=== PATIENT | female | born 1985 | race Two or more races ===

== ENCOUNTER 2018-11-30 16:50 | Inpatient (IN) | payer MEDICAID, OTHER ==
[~2018-11-30] VITALS: Ht 162.6 cm; Wt 95.3 kg
[2018-11-30] MEDS: LACTATED RINGER'S 1,000 ML IV SCH (18:20)
[2018-11-30] MEDS: MAGNESIUM SULFATE 40MG/ML 1,000 ML IV SCH (18:21)
[2018-11-30] MEDS ORDERED: MAGNESIUM SULFATE 100 ML IV ONE ×2 (18:28→18:30)
[2018-11-30] MEDS ORDERED: PREN-96 PO (18:28)
[2018-11-30] MEDS ORDERED: hydrALAZINE HCL 20 MG/ML VL ONE (18:28)
[2018-11-30] MEDS ORDERED: MAGNESIUM SULFATE 40MG/ML 1,000 ML IV ONE (18:28)
[2018-11-30] MEDS ORDERED: hydrALAZINE HCL 20 MG/ML VL IV ONE (18:30)
[2018-11-30 19:12] LABS: Basophils # (auto) 0 uL; Basophils % (auto) 0.3 % (0.0-2.0); Eosinophils # (auto) 0 uL; Eosinophils % (auto) 0.4 % (0.0-7.0); Hematocrit 32.2 % (36.0-46.0); Lymphocytes # (auto) 1.7 uL; Lymphocytes % (auto) 24.3 % (10.0-50.0); Mean Corpuscular Hemoglobin 29.8 pg (28.0-32.0); Mean Corpuscular Volume 87.5 fL (80.0-100.0); Monocytes # (auto) 0.5 uL; Monocytes % (auto) 6.4 % (0.0-12.0); Neutrophils # (auto) 4.9 uL; Neutrophils % (auto) 68.6 % (37.0-80.0); Nucleated Red Blood Cells % 0.2 %; Platelet Count (auto) 302 10^3/uL (140-450); Red Blood Cells 3.68 10^6/uL (4.0-5.20); Red Cell Distribution Width 13.9 % (11.8-14.3); White Blood Cell 7.1 10^3/uL (4.4-10.8)
[2018-11-30 19:26] LABS: Urine Bacteria NONE SEEN /hpf (None Seen); Urine Blood Negative /uL (Negative); Urine Specific Gravity 1.012 (1.001-1.035); Urine WBC 1 /hpf (0 - 5)
[2018-11-30 19:27] LABS: Albumin 2.6 g/dL (3.4-5.0); Calcium 8.5 mg/dL (8.5-10.1)
[2018-11-30 19:30] LABS: BUN/Creatinine Ratio 6.9; Bilirubin, Total 0.7 mg/dL (0.2-1.0); INR < 0.93 (0.9-1.15); Partial Thromboplastin Time 24.8 sec (23.64-32.05); Total Protein 6.8 g/dL (6.4-8.2); Uric Acid 4.6 mg/dL (2.6-6.0)
[2018-11-30 19:37] LABS: Potassium 2.9 mmol/L (3.5-5.1)
[2018-11-30 20:15] LABS: Fibrinogen 463 mg/dL (177-375)
[2018-11-30] MEDS ORDERED: POTASSIUM CHL 20MEQ/100ML 100 ML IV ONE (20:15)
[2018-11-30] MEDS: hydrALAZINE HCL 20 MG/ML VL IV PRN (20:47)
[2018-11-30] MEDS ORDERED: POTASSIUM CHL 20 Meq TABLET PO ONE (22:15)
[2018-11-30] MEDS ORDERED: fentaNYL W ROPIVACAINE 150 ML EPI SCH (22:45)
[2018-11-30] MEDS ORDERED: NALOXONE HCL 0.4 MG/ML VIAL IV ONE (22:45)
[2018-11-30] MEDS ORDERED: ePHEDrine SULFATE 50 MG/ML AMP IV ONE (22:45)
[2018-11-30] MEDS ORDERED: LIDOCAINE HCL 2 %PF INJ 10ML AMP IJ ONE (22:45)
[2018-11-30] MEDS ORDERED: fentaNYL CITRATE 100 MCG/2 ML VL IV ONE (22:45)
[2018-12-01] MEDS ORDERED: POTASSIUM CHL 20MEQ/100ML 100 ML IV ONE
[2018-12-01] MEDS: hydrALAZINE HCL 20 MG/ML VL IV PRN (01:24)
[2018-12-01] MEDS ORDERED: ACETAMINOPHEN 325 MG TAB PO PRN (01:45)
[2018-12-01] MEDS ORDERED: ONDANSETRON HCL 4 MG/2 ML VIAL ONE (02:05)
[2018-12-01] MEDS ORDERED: ONDANSETRON HCL 4 MG/2 ML VIAL IV ONE (02:15)
[2018-12-01] MEDS ORDERED: ACETAMINOPHEN 650 MG RECT SUPP PR ONE (02:15)
[2018-12-01] MEDS ORDERED: LACT. RINGERS/OXYTOCIN 20UNITS 1,000 ML IV SCH (05:50)
[2018-12-01] MEDS ORDERED: WITCH HAZEL-GLYCERIN PAD TOP PRN (06:00)
[2018-12-01] MEDS ORDERED: PHISODERM TOP SOLN 240ML BTL TOP PRN (06:00)
[2018-12-01] MEDS ORDERED: METHYLERGONOVINE MALEATE 0.2 MG/ML AMP IM PRN (06:00)
[2018-12-01] MEDS ORDERED: LIDOCAINE 1% (LOCAL ANESTH.) PF 5ml SDV IJ ONE (06:00)
[2018-12-01] MEDS ORDERED: DERMOPLAST 60ML BOTTLE TOP PRN (06:00)
[2018-12-01] MEDS: LACTATED RINGER'S 1,000 ML IV SCH ×2 (07:06→07:08)
[2018-12-01 07:46] LABS: Albumin 2.5 g/dL (3.4-5.0); Calcium 7.7 mg/dL (8.5-10.1)
[2018-12-01 07:51] LABS: Bilirubin, Total 0.8 mg/dL (0.2-1.0); Total Protein 6.4 g/dL (6.4-8.2)
[2018-12-01 08:17] LABS: Basophils # (auto) 0 uL; Basophils % (auto) 0.1 % (0.0-2.0); Eosinophils # (auto) 0 uL; Hematocrit 32.8 % (36.0-46.0); Hemoglobin 10.8 g/dL (12.2-16.2); Lymphocytes # (auto) 1.3 uL; Lymphocytes % (auto) 12.2 % (10.0-50.0); Mean Corpuscular Hemoglobin 29.3 pg (28.0-32.0); Mean Corpuscular Volume 88.8 fL (80.0-100.0); Monocytes # (auto) 0.4 uL; Monocytes % (auto) 3.3 % (0.0-12.0); Neutrophils # (auto) 9.3 uL; Neutrophils % (auto) 84.4 % (37.0-80.0); Nucleated Red Blood Cells % 0.2 %; Platelet Count (auto) 292 10^3/uL (140-450); White Blood Cell 11.1 10^3/uL (4.4-10.8)
[2018-12-01 08:30] LABS: INR < 0.93 (0.9-1.15); Partial Thromboplastin Time 24.5 sec (23.64-32.05)
[2018-12-01] MEDS: MAGNESIUM SULFATE 40MG/ML 1,000 ML IV SCH (08:30)
--- NOTE | 2018-12-01 08:30 | NUR ---
magnesium started at 1gm: 25 ml/hr per md orders
[2018-12-01] MEDS: ACETAMINOPHEN 325 MG TAB PO PRN ×2 (09:30→15:50)
[2018-12-01] MEDS ORDERED: POTASSIUM CHL 20 Meq TABLET PO ONE (10:00)
--- NOTE | 2018-12-01 10:56 | NUR ---
Ambulation: Patient OOB with standby assistance by RN. Patient ambulated to chair with steady gait. Patient cath in place. Pericare teaching provided with returned demonstration by patient. Clean gown provided and bed linen changed. Patient ambulated back to bed with steady gait pt felt dizzy at assisted back into bed
[2018-12-01] MEDS ORDERED: AMMONIA 0.33 ML INHALANT IN ONE (11:12)
--- NOTE | 2018-12-01 11:27 | NUR ---
PROVIDER SBAR GIVEN TO DR RENEE, ORDERS RECEIVED TO D/C MAG, STAT CBC, AND NS AT 125ML/HR, PT TO KEEP ALCARAZ CATH AND REMAIN ON BED REST AT THIS TIME. CONTINUE CARE.
[2018-12-01 11:34] VITALS: BP_SYST 136; BP_SYST 97; BP_DIAS 55; BP_DIAS 62
[2018-12-01] MEDS: SODIUM CHLORIDE 0.9% 1,000 ML IV SCH ×2 (11:34→19:24)
--- NOTE | 2018-12-01 11:34 | NUR ---
magnesium stopped per md orders
[2018-12-01] MEDS ORDERED: SODIUM CHLORIDE 0.9% 1,000 ML IV ONE (11:45)
--- NOTE | 2018-12-01 11:58 | NUR ---
lab at bedside
[2018-12-01 12:24] LABS: Basophils # (auto) 0 uL; Basophils % (auto) 0.1 % (0.0-2.0); Eosinophils # (auto) 0 uL; Hemoglobin 8.3 g/dL (12.2-16.2); Lymphocytes # (auto) 1.3 uL; Monocytes # (auto) 0.7 uL
[2018-12-01 12:26] LABS: Lymphocytes % (auto) 9.2 % (10.0-50.0); Mean Corpuscular Hemoglobin 29.4 pg (28.0-32.0); Mean Corpuscular Hgb Conc. 33.2 g/dL (32.0-36.0); Mean Corpuscular Volume 88.5 fL (80.0-100.0); Monocytes % (auto) 4.7 % (0.0-12.0); Neutrophils # (auto) 12.1 uL; Nucleated Red Blood Cells % 0.2 %; Platelet Count (auto) 259 10^3/uL (140-450); Red Blood Cells 2.82 10^6/uL (4.0-5.20); Red Cell Distribution Width 13.7 % (11.8-14.3); White Blood Cell 14.1 10^3/uL (4.4-10.8)
--- NOTE | 2018-12-01 13:10 | NUR ---
provider dr prakash updated on labs, recent vitals, and pt status, continue care
[2018-12-01 14:41] VITALS: BP 131/78
--- NOTE | 2018-12-01 15:56 | NUR ---
provider dr prakash notified of pt passing 2 golf ball sized blood clots, uterus firm 1 above umbilicus, orders received for cytotec 200mg sublingual and 600mg rectal.
--- NOTE | 2018-12-01 16:17 | NUR ---
provider dr prakash notified of pt having back pain feeling like "contractions" and pain unrelieved by tylenol, orders received for tylenol #3 2 tablets Q4 hrs prn, CBC in the morning. MD will be in to see pt.
--- NOTE | 2018-12-01 16:26 | NUR ---
provider notified of pt crying due to back pain, md to be in to see pt
--- NOTE | 2018-12-01 16:50 | NUR ---
provider dr prakash at bedside, notified of peripads and lower back pain, vaginal exam done by MD, manual removal of multiple sized blood clots by MD. RN and charge at bedside, orders received for ultrasound tomorrow to rule out retained POC.
--- NOTE | 2018-12-01 16:58 | NUR ---
activity pt resting comfortably, denies pain at this time, bed linen and yolanda pad changed. continue care.
[2018-12-01 19:30] VITALS: BP 129/72
[2018-12-01] MEDS: ACETAMINOPHEN/CODEINE#3 (300/30mg) TAB PO PRN (19:35)
[2018-12-01] MEDS: ceFAZolin 1GM/50ML 50 ML IV SCH (21:27)
[2018-12-01 22:51] VITALS: BP 128/62
--- NOTE | 2018-12-01 22:53 | NUR ---
temperature pt covered in multiple blankets, 2 layers of blankets removed, one layer remains, room cooled down for patient. sig other at bedside, no distress noted, continue care.
[2018-12-02] VITALS (13 sets, daily range): BP systolic 116–136; BP diastolic 59–79
[2018-12-02] MEDS: SODIUM CHLORIDE 0.9% 1,000 ML IV SCH ×2 (01:04→03:34)
--- NOTE | 2018-12-02 03:20 | NUR ---
REPORT PT REPORT RECEIVED FROM Tammy DUBOIS RN ON STABLE PATIENT, ASSUMING CARE. NO DISTRESS NOTED.
[2018-12-02 04:06] LABS: RPR Non Reactive (Non Reactive)
[2018-12-02] MEDS: ceFAZolin 1GM/50ML 50 ML IV SCH (05:39)
[2018-12-02 06:06] LABS: Basophils # (auto) 0 uL; Eosinophils # (auto) 0 uL; Neutrophils # (auto) 9.1 uL; Nucleated Red Blood Cells % 0.1 %; Red Blood Cells 1.56 10^6/uL (4.0-5.20); Red Cell Distribution Width 13.9 % (11.8-14.3)
[2018-12-02 06:13] LABS: Basophils % (auto) 0.3 % (0.0-2.0); Eosinophils % (auto) 0.2 % (0.0-7.0); Lymphocytes # (auto) 2.2 uL; Lymphocytes % (auto) 18.5 % (10.0-50.0); Mean Corpuscular Hemoglobin 30.6 pg (28.0-32.0); Mean Corpuscular Hgb Conc. 34.2 g/dL (32.0-36.0); Mean Corpuscular Volume 89.5 fL (80.0-100.0); Monocytes # (auto) 0.7 uL; Monocytes % (auto) 5.8 % (0.0-12.0); Neutrophils % (auto) 75.2 % (37.0-80.0); Platelet Count (auto) 165 10^3/uL (140-450); White Blood Cell 12.1 10^3/uL (4.4-10.8)
[2018-12-02 06:17] LABS: Hemoglobin 4.8 g/dL (12.2-16.2)
--- NOTE | 2018-12-02 06:18 | NUR ---
CRITICAL HGB DR. RENEE NOTIFIED OF PTS CBC RESULTS, CRITICAL HGB OF 4.8, AND NO ORDER FOR POTASSIUM RE-DRAW. DR. RENEE NOTIFIED OF PTS TRENDING VITAL SIGNS, HOURLY URINE OUTPUTS. PT IS ALERT AND ORIENTED X4, PT DENIES ANY PAIN, HEADACHE, DIZZINESS, BLURRED VISION. PTS FUNDUS IS 1 BELOW UMBILICUS, FIRM, SCANT RUBRA BLEEDING. ORDERS RECEIVED FROM DR. RENEE FOR STAT CBC RE-DRAW, POTASSIUMS DRAW, D/C ALCARAZ. READ BACK AND VERIFIED ORDERS. WILL CARRY OUT.
--- NOTE | 2018-12-02 06:30 | NUR ---
Gonzalez catheter dc'd Order to discontinue gonzalez catheter. Gonzalez dc'd with clean technique following deflation of balloon, 400ml yellow urine remaining in gonzalez bag upon removal. Patient tolerated well with no complaints of pain. Continue care.
--- NOTE | 2018-12-02 06:34 | NUR ---
LAB AT BEDSIDE FOR REDRAW CBC AND POTASSIUM DRAW.
[2018-12-02 07:06] LABS: Basophils # (auto) 0 uL; Basophils % (auto) 0.1 % (0.0-2.0); Eosinophils # (auto) 0 uL; Eosinophils % (auto) 0.1 % (0.0-7.0); Hematocrit 14.4 % (36.0-46.0); Lymphocytes % (auto) 17.1 % (10.0-50.0); Mean Corpuscular Hemoglobin 30.3 pg (28.0-32.0); Mean Corpuscular Hgb Conc. 33.7 g/dL (32.0-36.0); Mean Corpuscular Volume 89.9 fL (80.0-100.0); Monocytes # (auto) 0.6 uL; Monocytes % (auto) 5.1 % (0.0-12.0); Neutrophils % (auto) 77.6 % (37.0-80.0); Platelet Count (auto) 173 10^3/uL (140-450); White Blood Cell 11.6 10^3/uL (4.4-10.8)
[2018-12-02 07:24] LABS: Hemoglobin 4.9 g/dL (12.2-16.2)
--- NOTE | 2018-12-02 07:25 | NUR ---
STAT HBG DR. RENEE NOTIFIED OF CBC RE-DRAW RESULTS, HGB OF 4.6, HCT, 14.5, POTASSIUM OF 3.0, CURRENT VITAL SIGNS GIVEN, PT IS ASYMPTOMATIC. ORDERS RECEIVED FROM DR. RENEE TO TRANSFUSE 2 UNITS OF PRBC'S NOW, 40MEQ PO POTASSIUM ONCE AND CBC RE-DRAW AFTER 2 UNIT OF BLOOD TRANSFUSED. READ BACK AND VERIFIED ORDERS WILL CARRY OUT.
[2018-12-02] MEDS ORDERED: POTASSIUM CHL 20 Meq TABLET PO ONE (07:45)
[2018-12-02] MEDS ORDERED: SODIUM CHLORIDE 0.9% 1,000 ML IV SCH (08:00)
--- NOTE | 2018-12-02 08:00 | NUR ---
IV insertion IV access obtained, via clean sterile technique by inserting 18 gauge catheter at right antecubital after 1 attempt(s). IV secured properly. No trauma to site. Patient tolerated procedure well.
--- NOTE | 2018-12-02 08:30 | NUR ---
BLOOD TRANSFUSION BLOOD TRANSFUSION STARTED, BASELINE VITALS OBTAINED, PT IS ASYMPTOMATIC. PT GIVEN EDUCATION ON REASON FOR BLOOD TRANSFUSION, RISKS AND BENEFITS EXPLAINED AND ALL QUESTIONS AND CONCERNS ADDRESSED AT THIS TIME. PT EDUCATED ON ALL SIDE EFFECTS AND SYMPTOMS TO REPORT TO RN. PT GIVEN "A PATIENT'S GUIDE TO BLOOD TRANSFUSION" INFORMATION. WILL CONTINUE TO MONITOR.
--- NOTE | 2018-12-02 08:54 | NUR ---
VOID #1 PT VOIDED 500ML PINK TINGED URINE ON BEDPAN WITHOUT DIFFICULTY. PT TOLERATED WELL. WILL CONTINUE TO MONITOR.
[2018-12-02] MEDS: ACETAMINOPHEN/CODEINE#3 (300/30mg) TAB PO PRN ×2 (09:51→18:32)
[2018-12-02] MEDS ORDERED: MEASLES, MUMPS & RUBELLA VAC(MMRII) 0.5ML SC ONE (10:00)
--- NOTE | 2018-12-02 10:30 | NUR ---
us at bedside
--- NOTE | 2018-12-02 10:54 | NUR ---
BLOOD TRANSFUSION 1ST UNIT PRBC'S COMPLETED. PT IS ASYMPTOMATIC. PT DENIES ANY S/S OF ANY TRANSFUSION REACTIONS. PREPARING TO HANG PRBC BAG #2. WILL CONTINUE TO MONITOR.
--- NOTE | 2018-12-02 11:00 | NUR ---
VOID #2 PT VOIDED 550ML PINK TINGED URINE ON BEDPAN WITHOUT DIFFICULTY. PT TOLERATED WELL. WILL CONTINUE TO MONITOR.
--- NOTE | 2018-12-02 11:30 | NUR ---
2ND UNIT PRBC'S STARTED, BASELINE VITALS TAKEN. PT DENIES ANY PAIN. WILL CONTINUE TO MONITOR.
--- NOTE | 2018-12-02 14:00 | NUR ---
US RESULT DR. RENEE NOTIFIED OF PTS US RESULTS, PT IS ASYMPTOMATIC, ALL TRENDING VITAL SIGNS GIVEN, PT RECEIVING 2ND UNIT OF PRBC'S. ORDERS RECEIVED FROM DR. RENEE TO CONTINUE WITH CURRENT PLAN OF CARE. WILL CONTINUE TO MONITOR.
--- NOTE | 2018-12-02 14:00 | NUR ---
ORDERS RECEIVED FROM DR. RENEE TO STOP ANCEF 1 GM IV ANTIBIOTIC AND PT CAN GET UP TO CHAIR AT BEDSIDE. READ BACK AND VERIFIED ORDERS. WILL CARRY OUT.
--- NOTE | 2018-12-02 14:05 | NUR ---
PT SITTING IN CHAIR AT BEDSIDE, PTS SPOUSE AT BEDSIDE. NO DISTRESS NOTED. WILL CONTINUE TO MONITOR.
--- NOTE | 2018-12-02 14:10 | NUR ---
LINEN CHANGE Clean gown provided and bed linen changed. Patient ambulated back to bed with steady gait and no distress noted.
--- NOTE | 2018-12-02 14:45 | NUR ---
PT ASSISTED BACK TO BED, PT TOLERATED WELL. NO DISTRESS NOTED. WILL CONTINUE TO MONITOR.
--- NOTE | 2018-12-02 14:48 | NUR ---
2ND UNIT PRBC'S TRANSFUSED. NO TRANSFUSION REACTIONS NOTED, VITAL SIGNS WITHIN PATIENTS NORMAL LIMITS, TOLERATING WELL. PT DENIES ANY PAIN. WILL CONTINUE TO MONITOR.
--- NOTE | 2018-12-02 14:50 | NUR ---
DR. RENEE NOTIFIED THAT PTS BLOOD TRANSFUSION IS COMPLETED, PT IS STABLE AND ASYMPTOMATIC, TRENDING VITAL SIGNS GIVEN. ORDERS RECEIVED FROM DR. RENEE TO SALINE LOCK IV, PT CAN AMBULATE TO BATHROOM, AND MEASURE ACCURATE OUTPUTS. READ BACK AND VERIFIED ORDERS. WILL CARRY OUT.
--- NOTE | 2018-12-02 14:53 | NUR ---
BATHROOM PT AMBULATED TO BATHROOM WITH STANDBY ASSIST. PT VOIDED 750ML YELLOW URINE WITHOUT DIFFICULTY. PT AMBULATED BACK TO BED VIA STEADY GAIT. NO DISTRESS OR PAIN NOTED. WILL CONTINUE TO MONITOR.
[2018-12-02 17:40] LABS: Basophils # (auto) 0 uL; Basophils % (auto) 0.2 % (0.0-2.0); Eosinophils # (auto) 0.1 uL; Neutrophils # (auto) 10.3 uL; Red Cell Distribution Width 14.1 % (11.8-14.3)
[2018-12-02 17:42] LABS: Eosinophils % (auto) 0.4 % (0.0-7.0); Hematocrit 24.4 % (36.0-46.0); Hemoglobin 8.3 g/dL (12.2-16.2); Lymphocytes # (auto) 3.3 uL; Lymphocytes % (auto) 22.6 % (10.0-50.0); Mean Corpuscular Hemoglobin 30.4 pg (28.0-32.0); Mean Corpuscular Hgb Conc. 33.9 g/dL (32.0-36.0); Mean Corpuscular Volume 89.5 fL (80.0-100.0); Monocytes # (auto) 0.8 uL; Monocytes % (auto) 5.7 % (0.0-12.0); Neutrophils % (auto) 71.1 % (37.0-80.0); Nucleated Red Blood Cells % 0.2 %; Platelet Count (auto) 189 10^3/uL (140-450); Red Blood Cells 2.73 10^6/uL (4.0-5.20); White Blood Cell 14.4 10^3/uL (4.4-10.8)
--- NOTE | 2018-12-02 17:50 | NUR ---
CBC RESULT DR. REAL NOTIFIED OF PTS CURRENT CCB RESULTS, HGB 8.3, ORDERS RECEIVED FROM DR. RENEE FOR FERROUS SULFATE 325MG PO TID. READ BACK AND VERIFIED ORDERS. WILL CARRY OUT. PT MADE AWARE OF PLAN OF CARE.
[2018-12-02] MEDS: FERROUS SULFATE 325 MG TAB PO SCH (18:32)
--- NOTE | 2018-12-02 22:00 | NUR ---
REPORT ON STABLE PT GIVEN TO Nick MORGAN RN. RELINQUISHED CARE.
[2018-12-03 03:00] VITALS: BP 131/66
[2018-12-03 05:34] LABS: Hematocrit 20.9 % (36.0-46.0); Hemoglobin 7.1 g/dL (12.2-16.2)
--- NOTE | 2018-12-03 06:30 | NUR ---
REPORT: REPORT RECEIVED FROM IMPREGNATOR ELECTROLYTIC CAPACITORS RN TO RESUME CARE OF PT.
[2018-12-03 07:00] VITALS: BP 140/81
--- NOTE | 2018-12-03 08:00 | NUR ---
IV REMOVAL: REMOVED IV TO RIGHT AC, 18G WITH CATHETER FULLY INTACT. PT TOLERATE WELL.
[2018-12-03] MEDS: FERROUS SULFATE 325 MG TAB PO SCH ×3 (08:01→17:50)
--- NOTE | 2018-12-03 08:10 | NUR ---
MD CONTACT: SPOKE TO DR. WESTBROOK REGARDING UPDATED STATUS ON PATIENT. SHARED LAB VALUES AND ALL UPDATED PATIENT STATUS AND AT TIME, PER DR. WESTBROOK, DR. RENEE WILL MANAGE PATIENT CARE TODAY. WILL INFORM DR. RENEE OF ALL UPDATED STATUS FOR DAY AND EVALUATE IF PT IS READY FOR DISCHARGE HOME TODAY.
--- NOTE | 2018-12-03 08:15 | NUR ---
FEEDING: PT EDUCATED IN DETAIL ABOUT IMPORTANCE FOR BREAST FEEDING, SHOWED PROPER POSITIONING, PATIENT VERBALIZED COMPLETE UNDERSTANDING OF BENEFITS, IMPORTANCE AND EDUCATION FOR AND ALL QUESTIONS AND CONCERNS ADDRESSED. DESPITE FULL EDUCATION GIVEN ON , PATIENT STILL REQUESTING BOTTLE FEEDING. PROVIDED BOTTLE FOR BABY PER REQUEST.
[2018-12-03] MEDS: ACETAMINOPHEN/CODEINE#3 (300/30mg) TAB PO PRN (10:16)
--- NOTE | 2018-12-03 10:20 | NUR ---
UPDATE: MEDICATED WITH PAIN MEDICATION PER REQUEST. PT TOLERATED WELL.
[2018-12-03 11:17] VITALS: BP 140/69
--- NOTE | 2018-12-03 12:23 | NUR ---
MD CONTACT: SPOKE TO DR. RENEE IN FULL DETAIL AND AWARE THAT PATIENT REQUESTING TO GO HOME TODAY. AWARE THAT PATIENT DELIVERED ON 12/01 AND AFTER DELIVERY, HGB LEVELS DECREASED. AT TIME, HGB IS 7.1 AND HCT 20.9. MD MADE AWARE THAT PT IS HAVING MINIMAL VAGINAL BLEEDING, NO SIGNIFICANT VAGINAL OR ABDOMINAL PAIN, NO BLOOD CLOTS NOTED AND PERINEAL AREA IS INTACT. AWARE THAT BLOOD PRESSURE HAS BEEN ELEVATED TODAY WITH RESULTS OF 140/81 AND 140/68 THROUGHOUT SHIFT BUT THAT OTHER VITAL SIGNS IN STABLE RANGE AT TIME. MD WOULD NOT LIKE TO DISCHARGE TODAY AND TO OBTAIN ANOTHER CBC IN AM TO EVALUATE HGB LEVELS. PATIENT MADE AWARE AND PLAN TO CARRY OUT ORDERS.
[2018-12-03] MEDS ORDERED: MEASLES, MUMPS & RUBELLA VAC(MMRII) 0.5ML SC ONE (12:35)
[2018-12-03 15:00] VITALS: BP 136/82
--- NOTE | 2018-12-03 16:19 | NUR ---
Teaching: Discussed benefits of and risks associated with not . Discussed different positions, proper latch, feeding cues, and baby-led . All questions and concerns addressed at this time. infant latched on, bonding well. Patient verbalized understanding of information.
--- NOTE | 2018-12-03 18:20 | NUR ---
REPORT: REPORT GIVEN TO CONCRETE PRODUCTS MACHINE OPERATOR RN TO RESUME CARE OF PT.
[2018-12-03 19:00] VITALS: BP 159/80
--- NOTE | 2018-12-03 19:55 | NUR ---
Blood pressure Call placed to Arron Monroe CNM at this time. SBAR and update given, including but not limited to blood pressure trends from today reviewed and this evening @ 1830 159/80 and repeat @ 194 170/81. Order received for labetalol 100mg PO BID for SBP>150 and DBP>90. Continue current plan of care.
[2018-12-03] MEDS: LABETALOL HCL 200 MG TAB PO SCH (21:06)
[2018-12-03 23:00] VITALS: BP 133/71
[2018-12-04] MEDS: ACETAMINOPHEN/CODEINE#3 (300/30mg) TAB PO PRN ×2 (02:20→12:17)
[2018-12-04 03:00] VITALS: BP 142/74
[2018-12-04 07:39] VITALS: BP 127/64
[2018-12-04] MEDS: FERROUS SULFATE 325 MG TAB PO SCH ×2 (07:59→12:16)
[2018-12-04] MEDS: ACETAMINOPHEN 325 MG TAB PO PRN (07:59)
[2018-12-04 08:39] LABS: Basophils # (auto) 0 uL; Eosinophils # (auto) 0.2 uL; Hemoglobin 7.1 g/dL (12.2-16.2); Lymphocytes # (auto) 2.2 uL
[2018-12-04 08:41] LABS: Basophils % (auto) 0.3 % (0.0-2.0); Hematocrit 20.8 % (36.0-46.0); Lymphocytes % (auto) 23.4 % (10.0-50.0); Mean Corpuscular Hemoglobin 30.8 pg (28.0-32.0); Mean Corpuscular Hgb Conc. 34.1 g/dL (32.0-36.0); Mean Corpuscular Volume 90.4 fL (80.0-100.0); Monocytes # (auto) 0.5 uL; Monocytes % (auto) 4.9 % (0.0-12.0); Neutrophils # (auto) 6.6 uL; Neutrophils % (auto) 69.4 % (37.0-80.0); Nucleated Red Blood Cells % 0.2 %; Platelet Count (auto) 210 10^3/uL (140-450); Red Cell Distribution Width 14.1 % (11.8-14.3); White Blood Cell 9.5 10^3/uL (4.4-10.8)
[2018-12-04] MEDS: LABETALOL HCL 200 MG TAB PO SCH (09:39)
[2018-12-04] MEDS ORDERED: DOCUSATE CALCIUM 240 MG CAP PO SCH (10:00)
[2018-12-04] MEDS ORDERED: DOCUSATE SOD 100 MG CAP PO SCH (10:00)
[2018-12-04 11:00] VITALS: BP 135/64
--- NOTE | 2018-12-04 11:41 | NUR ---
Dr. Leblanc in nursing station and states call back after 3 pm vital with update. Dr. Leblanc aware hgb is 7.1 hgb that was taken this am .
--- NOTE | 2018-12-04 14:50 | NUR ---
REPORT GIVEN TO Arron RITCHIE RN. Addendum: 12/04/18 at 1453 by Stephania Ritchie RN Report Received from Arron Martin
[2018-12-04 15:00] VITALS: BP 144/71
--- NOTE | 2018-12-04 15:09 | NUR ---
REPORT TO DR RENEE RE: BP Blood pressures for the last 24 hours reviewed, nurses notes from last night reviewed, orders received to DC pt home at this time.
--- NOTE | 2018-12-04 15:49 | NUR ---
Discharge: Discharge instructions given to mother of baby as ordered. Copies of and hearing screening, along with vaccination record given to mother. Mother encouraged to follow up with Operational Risk Analyst of choice and to give envelope with infants information to hoist operator at 1st office visit. All questions and concerns addressed. Mother of baby verbalized understanding and agreed to comply. Mother of baby encouraged to prepare for departure and notify RN ready to leave room for ID band removal/verification and car seat check.
[2018-12-04 16:05] VITALS: BP 144/70
--- NOTE | 2018-12-04 16:17 | NUR ---
Discharge: Discharge instructions given as ordered. Pt encouraged to follow up with FORM CARPENTER as instructed. All questions and concerns addressed. Patient verbalized understanding. Medication reconciliation completed and copy given to patient. All required/requested vaccines given and copies of vaccinations given to patient. Patient encouraged to prepare to depart unit.
== END 2018-12-04 16:05 | disposition home or self-care (01) | DRG 560 ==
LOC: LDRP 16:50
PROVIDERS: ADMIT Specialist; ATTEND Specialist
PROC: 10E0XZZ Delivery of Products of Conception, External Approach (ICD-10-PCS; principal; 2018-12-01)
PROC: 3E0R3BZ Introduction of Anesthetic Agent into Spinal Canal, Percutaneous Approach (ICD-10-PCS; 2018-12-01)
PROC: 00HU33Z Insertion of Infusion Device into Spinal Canal, Percutaneous Approach (ICD-10-PCS; 2018-12-01)
PROC: 30233N1 Transfusion of Nonautologous Red Blood Cells into Peripheral Vein, Percutaneous Approach (ICD-10-PCS; 2018-12-02)
DX: O14.14 Severe pre-eclampsia complicating childbirth (principal); O72.1 Other immediate postpartum hemorrhage; Z3A.37 37 weeks gestation of pregnancy; E87.6 Hypokalemia; Z37.0 Single live birth; O99.284 Endocrine, nutritional and metabolic diseases complicating childbirth; O99.02 Anemia complicating childbirth; D64.9 Anemia, unspecified
CPT/HCPCS: 36415; 36430; 51702; 59025; 59200; 59409; 62282; 76856; 80053; 81001; 81002; 83735; 84112; 84132; 84550; 85014; 85018; 85025; 85384; 85610; 85730; 86592; 86850; 86900; 86901; 86920; 90471; 94760; 96361; 96365; 96366; 96374; 96375; G0378; J0690; J2405; J2590; J3010; J3480

== ENCOUNTER → 2019-02-12 | Day surgery (SDC) | payer MEDICAID ==
[~2019-02-12] VITALS: Ht 162.6 cm; Wt 81.6 kg
[~2019-02-12] MED LIST: GLYCOPYRROLATE 0.2 MG/ML 1ML VIAL ONE; IBUP600T27 PO; KETOROLAC TROMETH 30 MG/ML 1ML VIAL IV ONE; KETOROLAC TROMETH 60MG/2ML VIAL ONE; LACTATED RINGER'S 1,000 ML IV SCH; LIDOCAINE 2% (LOCAL ANESTH.) PF 5ml SDV ONE; LIDOCAINE HCL 2% TOP JELLY 5ML TOP ONE; MEPERIDINE HCL (25 MG/ML) 1ML VIAL ONE; METOCLOPRAMIDE HCL 5MG/ml INJ 2ml VIAL IV PRN; MIDAZOLAM HCL 1MG/1ML-2 ML VIAL ONE; NEOSTIGMINE 1 MG/ML INJ (10mg/10ML VIAL) ONE; ONDANSETRON HCL 4 MG/2 ML VIAL IV ONE; ONDANSETRON HCL 4 MG/2 ML VIAL IV PRN; PREN-96 PO; PROPOFOL 10 MG/ML 20 ML IV ONE; ROCURONIUM 10MG/ML 10ML VIAL IV ONE; SODIUM CHLORIDE LOCK 10 ML ONE; ceFAZolin 1GM/50ML 50 ML IV ONE; fentaNYL CITRATE 100 MCG/2 ML VL IV PRN; fentaNYL CITRATE 100 MCG/2 ML VL ONE
[2019-02-12] MEDS: HYDROmorphone HCL 2 MG/ML VL IV PRN ×3 (12:15→12:52)
[2019-02-12 13:02] VITALS: BP 129/71
== END | disposition home or self-care (01) ==
LOC: SUR 08:11
PROVIDERS: ATTEND Specialist
DX: Z30.2 Encounter for sterilization (principal); E66.8 Other obesity; D64.9 Anemia, unspecified; Z90.49 Acquired absence of other specified parts of digestive tract; Z68.30 Body mass index [BMI] 30.0-30.9, adult
CPT/HCPCS: 58671; 86850; 86900; 86901; J0690; J1170; J1885; J2001; J2175; J2250; J2405; J2704; J3010